=== PATIENT | female | born 1945 | race Caucasian/White ===

== ENCOUNTER 2019-11-29 17:32 | Inpatient (IN) | payer OTHER ==
[~2019-11-29] VITALS: Ht 167.6 cm; Wt 54.2 kg
--- NOTE | 2019-11-29 18:48 | NUR ---
Bedside report from [facility]. Pt came in today after a syncopal episode, fire department brought pt in. Pt wheeled back to room from bathroom via wheelchair, khalif blood noted in stool sample, sample sent to lab, stand by assist transfer, pt placed on 2L NC for SPO2 sats. Pt daughter at BS. pt skin warm and dry, NAD, WCTM. waiting for lab results.
[2019-11-29 18:51] LABS: ANION GAP 9 mmol/L (5-15); CALCIUM 10.1 mg/dL (8.5-10.1); CHLORIDE 109 mmol/L (98-107); CREATININE 2.13 mg/dL (0.55-1.02)
[2019-11-29 18:52] LABS: ALANINE AMINOTRANSFERASE 15 U/L (12-78); ALBUMIN 3.2 g/dL (3.4-5.0)
[2019-11-29 18:56] LABS: ALKALINE PHOSPHATASE 72 U/L (45-117); BILIRUBIN,TOTAL 0.3 mg/dL (0.2-1.0); MD YES; TROPONIN I 0.018 ng/mL (0.000-0.045)
[2019-11-29 18:59] LABS: MEAN CORPUSCULAR HEMOGLOBIN 23.4 pg (27.0-34.8); MEAN CORPUSCULAR HGB CONC 30.1 g/dL (32.4-35.8); MEAN PLATELET VOLUME 7.4 fL (7.4-10.4); PLATELET COUNT 544 x10^3/uL (130-400); RED BLOOD COUNT 4.61 x10^6/uL (3.82-5.3); RED CELL DISTRIBUTION WIDTH 18.1 % (9.6-15.2)
[2019-11-29 19:05] LABS: BANDS%(MANUAL) 7 % (0-7); EOS#(MANUAL) 0.31 x10^3/uL (0.0-0.4); EOS% (MANUAL) 1 % (1-7); LYMPH#(MANUAL) 1.26 x10^3/uL (1-3.4); LYMPHS% (MANUAL) 4 % (22-44); MONOS#(MANUAL) 0.31 x10^3/uL (0.3-2.7); MONOS% (MANUAL) 1 % (2-9); SEG#(MANUAL) 27.32 x10^3/uL (1.8-6.8); SEGS% (MANUAL) 87 % (42-75)
[2019-11-29 19:12] LABS: ANISOCYTOSIS 1+; MICROCYTOSIS 1+; OVALOCYTES 1+
[2019-11-29 19:13] LABS: <PLATELET ESTIMATE> INCREASED; <PLT MORPHOLOGY> NORMAL PLT MORPH; SPHEROCYTES 1+
[2019-11-29 19:22] LABS: GASTRIC OCCULT BLD POSITIVE (NEGATIVE); GASTRIC PH 7+ (1-7)
--- NOTE | 2019-11-29 19:48 | NUR ---
LATE ENTRY: PT LAYING IN GURNEY, NO CHANGE IN CONDITION, PT TO BE ADMITTED, NAD, VSS, WCTM. WAITING FOR ADMIT ORDERS/BED.
[2019-11-29] MEDS ORDERED: SODIUM CHLORIDE 0.9% 1,000ML IVBOLUS ONE (20:00)
[2019-11-29] MEDS ORDERED: ELECTROLYTE REPLACEMENT PROTOCOL CRITICAL CARE ONLY MC PRN (20:30)
[2019-11-29] MEDS ORDERED: ONDANSETRON 2MG/ML, 2ML IV PRN (20:30)
[2019-11-29] MEDS ORDERED: PANTOPRAZOLE 40 MG IV ONE (20:47)
[2019-11-29] MEDS: PANTOPRAZOLE 40 MG IV IVPush SCH (20:50)
[2019-11-29] MEDS ORDERED: GABA600T7 PO ×2 (20:57)
[2019-11-29] MEDS ORDERED: LEVO137T3 PO (20:57)
[2019-11-29] MEDS ORDERED: ZOLP-413 PO (20:57)
[2019-11-29] MEDS ORDERED: ESTR0.6246 PO (20:57)
[2019-11-29] MEDS ORDERED: HYDR-3237 PO (20:57)
[2019-11-29] MEDS ORDERED: DIPHENIA PEG (20:57)
[2019-11-29] MEDS ORDERED: PARO20TA4 PO (20:57)
[2019-11-29] MEDS ORDERED: PROP40TA PO (20:57)
[2019-11-29] MEDS ORDERED: NIAC500C3 PO (20:57)
[2019-11-29] MEDS ORDERED: OMEG1CAP24 PO (20:57)
[2019-11-29] MEDS ORDERED: CYCL5TAB PO (20:57)
[2019-11-29] MEDS ORDERED: SPIR25TA5 PO (20:57)
--- NOTE | 2019-11-29 20:57 | NUR ---
Note perez in EDM - 11/29/19 at 2057 by DEEPA REPORT CALLED . PT CARE TO BE TRANSFERRED UPON ARRIVAL TO [facility]. WCTM. NO HCANGE IN PT CONDITION AT THIS TIME. MEDICATED PER JUL.
--- NOTE | 2019-11-29 20:58 | NUR ---
REPORT CALLED ARVIND. PT CARE TO BE TRANSFERRED UPON ARRIVAL TO FLOOR. WCTM. NO HCANGE IN PT CONDITION AT THIS TIME. MEDICATED PER JUL.
[2019-11-29 21:05] LABS: MD YES; MEAN CORPUSCULAR HEMOGLOBIN 23.4 pg (27.0-34.8); MEAN CORPUSCULAR HGB CONC 30.2 g/dL (32.4-35.8); MEAN PLATELET VOLUME 7.2 fL (7.4-10.4); PLATELET COUNT 504 x10^3/uL (130-400); RED CELL DISTRIBUTION WIDTH 17.8 % (9.6-15.2)
[2019-11-29 21:07] LABS: ANISOCYTOSIS 1+; BAND#(MANUAL) 0.47 x10^3/uL; BANDS%(MANUAL) 2 % (0-7); BASOS#(MANUAL) 0.47 x10^3/uL (0-0.1); BASOS% (MANUAL) 2 % (0-1); LYMPH#(MANUAL) 1.86 x10^3/uL (1-3.4); LYMPHS% (MANUAL) 8 % (22-44); MICROCYTOSIS 1+; MONOS#(MANUAL) 0.47 x10^3/uL (0.3-2.7); MONOS% (MANUAL) 2 % (2-9); SEG#(MANUAL) 20.04 x10^3/uL (1.8-6.8); SEGS% (MANUAL) 86 % (42-75); SPHEROCYTES 1+
[2019-11-29 21:08] LABS: <PLATELET ESTIMATE> INCREASED; <PLT MORPHOLOGY> NORMAL PLT MORPH; OVALOCYTES 1+
[2019-11-29 21:56] VITALS: BP 121/54
[2019-11-29] MEDS: D5%-0.45% NACL 1,000 ML IV SCH (23:38)
[2019-11-30 00:27] VITALS: BP 125/50
[2019-11-30] MEDS: ACETAMINOPHEN 325 MG TABLET PO PRN ×2 (01:00→18:18)
[2019-11-30 02:17] LABS: ANION GAP 8 mmol/L (5-15); CALCIUM 8.8 mg/dL (8.5-10.1); CHLORIDE 111 mmol/L (98-107); CREATININE 1.77 mg/dL (0.55-1.02)
[2019-11-30 02:30] LABS: MEAN CORPUSCULAR HEMOGLOBIN 23.5 pg (27.0-34.8); MEAN CORPUSCULAR HGB CONC 30.5 g/dL (32.4-35.8); MEAN PLATELET VOLUME 6.9 fL (7.4-10.4); PLATELET COUNT 370 x10^3/uL (130-400); RED BLOOD COUNT 3.58 x10^6/uL (3.82-5.3); RED CELL DISTRIBUTION WIDTH 17.3 % (9.6-15.2)
[2019-11-30 02:33] LABS: MD YES
[2019-11-30 02:36] LABS: ANISOCYTOSIS 1+; BAND#(MANUAL) 0.18 x10^3/uL; BANDS%(MANUAL) 1 % (0-7); BASOS#(MANUAL) 0.18 x10^3/uL (0-0.1); BASOS% (MANUAL) 1 % (0-1); LYMPH#(MANUAL) 1.06 x10^3/uL (1-3.4); LYMPHS% (MANUAL) 6 % (22-44); MICROCYTOSIS 1+; MONOS#(MANUAL) 0.35 x10^3/uL (0.3-2.7); MONOS% (MANUAL) 2 % (2-9); SEG#(MANUAL) 15.84 x10^3/uL (1.8-6.8); SEGS% (MANUAL) 90 % (42-75)
[2019-11-30 02:39] LABS: <PLATELET ESTIMATE> ADEQUATE; OVALOCYTES 1+; SPHEROCYTES 1+
[2019-11-30 02:40] LABS: <PLT MORPHOLOGY> NORMAL PLT MORPH
[2019-11-30 02:44] LABS: % IRON SATURATION 2 % (20-55); FREE T4 (FREE THYROXINE) 1.28 ng/dL (0.76-1.46); IRON LEVEL 11 mcg/dL (50-170); TOTAL IRON BINDING CAPACITY 454 mcg/dL (250-450)
[2019-11-30] MEDS: CEFTRIAXONE PMX 2GM/50ML 50 ML IV SCH (02:45)
[2019-11-30] MEDS: METRONIDAZOLE PMX 500MG/100ML 100 ML IV SCH ×3 (02:45→16:59)
[2019-11-30] MEDS: LEVOTHYROXINE 137 MCG TABLET PO SCH (05:09)
[2019-11-30 06:04] VITALS: BP 115/54
[2019-11-30] MEDS: PANTOPRAZOLE 40 MG IV IVPush SCH ×2 (08:09→20:29)
[2019-11-30 08:30] VITALS: BP 154/80
[2019-11-30 12:07] LABS: MICROSCOPIC AUTO
[2019-11-30] MEDS: GABAPENTIN 300 MG CAPSULE PO SCH ×2 (12:57→20:29)
[2019-11-30 13:24] VITALS: BP 133/65
[2019-11-30 16:53] LABS: HCT (SEDRATE) 26.6 % (34.6-47.8)
[2019-11-30] MEDS: D5%-0.45% NACL 1,000 ML IV SCH (16:59)
[2019-11-30] MEDS: HYDROcodone/APAP 5/325 TABLET PO PRN ×2 (16:59→23:35)
[2019-11-30] MEDS ORDERED: NICOTINE 21 MG/24 HR PATCH.TD24 TD ONE (17:00)
[2019-11-30 20:12] VITALS: BP 146/66
[2019-11-30] MEDS ORDERED: ZOLPIDEM 10MG TABLET PO SCH (21:00)
[2019-11-30] MEDS ORDERED: GABAPENTIN 300 MG CAPSULE PO SCH (21:00)
[2019-11-30] MEDS ORDERED: HYDROcodone/APAP 5/325 TABLET PO SCH (21:00)
[2019-12-01] MEDS: METRONIDAZOLE PMX 500MG/100ML 100 ML IV SCH ×2 (01:13→09:13)
[2019-12-01] MEDS: CEFTRIAXONE PMX 2GM/50ML 50 ML IV SCH (02:49)
[2019-12-01] MEDS: ACETAMINOPHEN 325 MG TABLET PO PRN (02:55)
[2019-12-01 02:56] VITALS: BP 190/75
[2019-12-01 04:10] VITALS: BP 163/71
[2019-12-01 04:30] LABS: CHLORIDE 110 mmol/L (98-107); MEAN CORPUSCULAR HGB CONC 29.4 g/dL (32.4-35.8); MEAN PLATELET VOLUME 6.8 fL (7.4-10.4); PLATELET COUNT 369 x10^3/uL (130-400); RED BLOOD COUNT 3.26 x10^6/uL (3.82-5.3)
[2019-12-01 04:37] LABS: % IRON SATURATION 3 % (20-55); ALANINE AMINOTRANSFERASE 13 U/L (12-78); ALBUMIN 2.4 g/dL (3.4-5.0); ALKALINE PHOSPHATASE 50 U/L (45-117); ANION GAP 8 mmol/L (5-15); BILIRUBIN,TOTAL 0.2 mg/dL (0.2-1.0); CALCIUM 8.6 mg/dL (8.5-10.1); CREATININE 1.15 mg/dL (0.55-1.02); IRON LEVEL 13 mcg/dL (50-170); TOTAL IRON BINDING CAPACITY 436 mcg/dL (250-450); TOTAL PROTEIN 6.5 g/dL (6.4-8.2)
[2019-12-01] MEDS: LEVOTHYROXINE 137 MCG TABLET PO SCH (05:39)
[2019-12-01 05:41] LABS: BASOPHILS # (AUTO) 0.05 x10^3/uL (0-0.1); BASOPHILS % (AUTO) 1 % (0-1); EOSINOPHILS # (AUTO) 0.18 x10^3/uL (0-0.4); EOSINOPHILS % (AUTO) 2 % (1-7); LYMPHOCYTES # (AUTO) 1.76 x10^3/uL (1-3.4); LYMPHOCYTES % (AUTO) 22 % (22-44); MD SCAN; MONOCYTES # (AUTO) 0.71 x10^3/uL (0.2-0.8); MONOCYTES % (AUTO) 9 % (2-9); NEUTROPHILS # (AUTO) 5.31 x10^3/uL (1.8-6.8); NEUTROPHILS % (AUTO) 66 % (42-75)
[2019-12-01 07:43] VITALS: BP 165/71
[2019-12-01] MEDS: PANTOPRAZOLE 40 MG IV IVPush SCH (07:46)
[2019-12-01] MEDS: GABAPENTIN 300 MG CAPSULE PO SCH (07:47)
[2019-12-01] MEDS: D5%-0.45% NACL 1,000 ML IV SCH (07:47)
[2019-12-01] MEDS ORDERED: METR500T PO (08:13)
[2019-12-01] MEDS ORDERED: CEFD300C37 PO (08:13)
[2019-12-01] MEDS ORDERED: PAROXETINE 20 MG TABLET PO SCH (09:00)
== END 2019-12-01 11:23 | disposition home or self-care (01) | DRG 377 ==
LOC: ED 18:02 → EDIP 19:55 → 4WST 21:14 → DCLOUNGE 12-01 11:15
PROVIDERS: ADMIT Internal Medicine; ATTEND Family Medicine
DX: K92.1 Melena (principal); N17.0 Acute kidney failure with tubular necrosis; D62 Acute posthemorrhagic anemia; F11.20 Opioid dependence, uncomplicated; K52.9 Noninfective gastroenteritis and colitis, unspecified; I10 Essential (primary) hypertension; E03.9 Hypothyroidism, unspecified; E78.1 Pure hyperglyceridemia; M54.9 Dorsalgia, unspecified; G89.29 Other chronic pain; E78.5 Hyperlipidemia, unspecified; F17.210 Nicotine dependence, cigarettes, uncomplicated; W18.39XA Other fall on same level, initial encounter; F32.9 Major depressive disorder, single episode, unspecified; Z78.0 Asymptomatic menopausal state; Z80.3 Family history of malignant neoplasm of breast; Z90.710 Acquired absence of both cervix and uterus; Z88.0 Allergy status to penicillin; Y93.89 Activity, other specified; Y92.098 Other place in other non-institutional residence as the place of occurrence of the external cause
CPT/HCPCS: 36415; 71045; 74176; 76770; 80048; 80053; 81001; 82271; 82607; 82728; 83540; 83550; 84439; 84443; 84484; 85014; 85018; 85025; 85651; 86140; 86850; 86900; 87040; 87086; 87106; 93005; 96360; 96361; 99291; G0378; J0696; C9113; J7030